=== PATIENT | male | born 1990 | race Two or more races ===

== ENCOUNTER 2019-10-28 03:36 | Emergency (ER) | payer MEDICAID, OTHER ==
[~2019-10-28] VITALS: Ht 165.1 cm; Wt 95.3 kg
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
[2019-10-28] MEDS ORDERED: SODIUM BICARBONATE 5 ML VIAL ONE (04:10)
[2019-10-28] MEDS ORDERED: LIDOCAINE 1%-EPI 1:100,000 20 ML VIAL ONE (04:10)
--- NOTE | 2019-10-28 04:12 | NUR ---
DR SANDERS IS AT THE BEDSIDE FOR SUTURING.
--- NOTE | 2019-10-28 04:21 | NUR ---
XRAY IN PROGRESS AT THE BEDSIDE.
[2019-10-28] MEDS ORDERED: SULFAMETH/TRIMETH 800/160 MG 1 UDTAB TABLET ONE (04:28)
[2019-10-28] MEDS ORDERED: HYDROMORPHONE INJ 2 MG/ML DISP.SYRIN ONE (04:28)
[2019-10-28] MEDS ORDERED: LIDOCAINE 1%-EPI 1:100,000 20 ML VIAL TP ONE (04:30)
[2019-10-28] MEDS ORDERED: SODIUM BICARBONATE 5 ML VIAL MC ONE (04:30)
[2019-10-28] MEDS ORDERED: SULFAMETH/TRIMETH 800/160 MG 1 UDTAB TABLET PO ONE (04:30)
[2019-10-28] MEDS ORDERED: HYDROMORPHONE INJ 2 MG/ML DISP.SYRIN IM ONE (04:30)
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
[2019-10-28 05:43] VITALS: BP 121/67
== END 2019-10-28 05:00 | disposition home or self-care (01) ==
LOC: ER 03:36
DX: S51.012A Laceration without foreign body of left elbow, initial encounter (principal); S50.12XA Contusion of left forearm, initial encounter; S50.11XA Contusion of right forearm, initial encounter; S60.221A Contusion of right hand, initial encounter; S80.11XA Contusion of right lower leg, initial encounter; F17.200 Nicotine dependence, unspecified, uncomplicated; Z59.0 Homelessness; Y00.XXXA Assault by blunt object, initial encounter; Y93.89 Activity, other specified; Y92.89 Other specified places as the place of occurrence of the external cause; Y99.8 Other external cause status
CPT/HCPCS: 12001; 73090 ×2; 73130; 73590; 96372; 99284; 99406; J1170; J3490 ×2

== ENCOUNTER 2020-12-10 13:55 | Emergency (ER) | payer MEDICAID ==
[~2020-12-10] VITALS: Ht 165.1 cm; Wt 113.4 kg
[2020-12-10 14:04] VITALS: BP 131/69
[2020-12-10] MEDS ORDERED: DOXY-326 PO (14:20)
[2020-12-10] MEDS ORDERED: SULF1TAB48 PO (14:20)
[2020-12-10] MEDS ORDERED: LIDOCAINE /MPF 1% VIAL 5 ML VIAL ONE (14:23)
[2020-12-10] MEDS ORDERED: CEFTRIAXONE 500 MG VIAL ONE (14:23)
[2020-12-10] MEDS ORDERED: CEFTRIAXONE 500 MG VIAL IM ONE (14:30)
--- NOTE | 2020-12-10 14:40 | NUR ---
Patient given written and verbal discharge instructions. Patient verbalizes understanding of instructions. Patient is ambulatory with steady gait. Refuses offer of [facility] placement. Patient given list of available shelters in surrounding area.
== END 2020-12-10 14:49 | disposition home or self-care (01) ==
LOC: ER 13:57
DX: L03.116 Cellulitis of left lower limb (principal); F17.200 Nicotine dependence, unspecified, uncomplicated; Z60.2 Problems related to living alone
CPT/HCPCS: 96372; 99283; J0696; J3490

== ENCOUNTER 2021-03-04 16:33 | Emergency (ER) | payer MEDICAID ==
[~2021-03-04 16:33] MED LIST: DOXY-326 PO; SULF1TAB48 PO
--- NOTE | 2021-03-04 16:55 | NUR ---
CALLED IN ED WAITING ROOM. NO RESPONSE.
--- NOTE | 2021-03-04 17:10 | NUR ---
CALLED IN ED WAITING ROOM. NO RESPONSE
--- NOTE | 2021-03-04 17:46 | NUR ---
PT LEFT. NOT TRIAGED.
[2021-03-04] MEDS ORDERED: HYDR453.4 TP (19:16)
[2021-03-04] MEDS ORDERED: CEPH500C2 PO (19:16)
[2021-03-04] MEDS ORDERED: PERM60CR6 TP (19:16)
== END 2021-03-04 17:47 | disposition left against medical advice (07) ==
LOC: ER 16:36
DX: Z53.21 Procedure and treatment not carried out due to patient leaving prior to being seen by health care provider (principal); B86 Scabies

== ENCOUNTER 2021-03-04 18:49 | Emergency (ER) | payer MEDICAID ==
[~2021-03-04] VITALS: Ht 165.1 cm; Wt 103.9 kg
[2021-03-04 18:55] VITALS: BP 135/84
[2021-03-04] MEDS ORDERED: HYDR453.4 TP (19:16)
[2021-03-04] MEDS ORDERED: CEPH500C2 PO (19:16)
[2021-03-04] MEDS ORDERED: PERM60CR6 TP (19:16)
== END 2021-03-04 19:24 | disposition home or self-care (01) ==
LOC: ER 19:05
DX: B86 Scabies (principal); L40.9 Psoriasis, unspecified; L03.211 Cellulitis of face; F17.200 Nicotine dependence, unspecified, uncomplicated; Z60.2 Problems related to living alone; Z79.899 Other long term (current) drug therapy

== ENCOUNTER 2021-03-09 21:10 | Emergency (ER) | payer MEDICAID ==
[~2021-03-09] VITALS: Ht 165.1 cm; Wt 113.4 kg
[~2021-03-09 21:10] MED LIST changes: +CEPH500C2 PO; +HYDR453.4 TP; +PERM60CR6 TP
[2021-03-09 21:31] VITALS: BP 113/69
[2021-03-09] MEDS ORDERED: PERM60CR4 TP (21:38)
== END 2021-03-09 21:45 | disposition home or self-care (01) ==
LOC: ER 21:13
DX: B86 Scabies (principal); Z76.0 Encounter for issue of repeat prescription; F17.200 Nicotine dependence, unspecified, uncomplicated; Z60.2 Problems related to living alone; Z79.899 Other long term (current) drug therapy

== ENCOUNTER 2021-06-01 03:35 | Emergency (ER) | payer MEDICAID ==
[~2021-06-01] VITALS: Ht 165.1 cm; Wt 95.3 kg
[~2021-06-01 03:35] MED LIST changes: +PERM60CR4 TP
--- NOTE | 2021-06-01 04:44 | NUR ---
called for triage not in waiting room
[2021-06-01 06:01] VITALS: BP 139/71
[2021-06-01] MEDS ORDERED: SULF1TAB48 PO (06:33)
[2021-06-01] MEDS ORDERED: CEPH500C2 PO (06:33)
[2021-06-01] MEDS ORDERED: PERM60CR4 TP (06:33)
--- NOTE | 2021-06-01 06:42 | NUR ---
Patient discharged to home in stable condition. Written and verbal after care instructions given. Patient verbalizes understanding of instruction.
== END 2021-06-01 06:42 | disposition home or self-care (01) ==
LOC: ER 03:36
DX: B86 Scabies (principal); L03.115 Cellulitis of right lower limb; Z76.0 Encounter for issue of repeat prescription; F17.200 Nicotine dependence, unspecified, uncomplicated; Z60.2 Problems related to living alone; Z79.899 Other long term (current) drug therapy